=== PATIENT | female | born 1965 | race Asian ===

== ENCOUNTER 2020-09-13 11:08 | Day surgery (SDC) | payer OTHER, SELFPAY ==
[~2020-09-13] VITALS: Ht 165.1 cm; Wt 67.1 kg
[2020-09-13] MEDS ORDERED: MIDAZOLAM 2 MG/2 ML VIAL ONE (11:31)
[2020-09-13] MEDS ORDERED: diphenhydrAMINE 50 MG/ML VIAL ONE (11:31)
[2020-09-13] MEDS ORDERED: LIDOCAINE 2% 100 MG/5 ML UJET TP ONE ×2 (11:31→15:25)
[2020-09-13] MEDS ORDERED: fentaNYL citrate 0.05 MG/ML VIAL ONE (11:31)
[2020-09-13] MEDS ORDERED: MIDAZOLAM 2 MG/2 ML VIAL IVP ONE (15:20)
[2020-09-13] MEDS ORDERED: fentaNYL citrate 0.05 MG/ML VIAL IVP ONE (15:20)
== END 2020-09-13 15:03 | disposition home or self-care (01) ==
LOC: MDS 11:08 → MFCC 11:15 → MDS 15:03
PROVIDERS: ATTEND Surgery
DX: Z12.11 Encounter for screening for malignant neoplasm of colon (principal); K64.0 First degree hemorrhoids; I10 Essential (primary) hypertension; E11.9 Type 2 diabetes mellitus without complications; Z80.0 Family history of malignant neoplasm of digestive organs; Z79.899 Other long term (current) drug therapy
CPT/HCPCS: 45398; 71045; J2250; J3010; J7030; U0003; J1200